=== PATIENT | female | born 1960 | race Caucasian/White ===

== ENCOUNTER → 2018-07-12 | Day surgery (SDC) | payer OTHER ==
[~2018-07-12] MED LIST: BIOTIN1 MG; D3; FENOFIBRATE145 MG; FENTANYL CITRATE/PF 100MCG/2 ML INJ ONE; FIBER POWDER; GLIMEPIRIDE2 MG; GLYBURIDE5 MG PO; ISONIAZID300 MG; KETAMINE HCL INJ 50 MG/ML 10 ML VIAL ONE; LIDOCAINE HCL 2% LOCAL INJ 5 ML SDV VIAL INJ ONE; LISINOPRIL10 MG; LISINOPRIL10 MG PO; LORCET; MAGNESIUM100 MG; METFORMIN HCL500 MG; METFORMIN HCL850 MG PO; MIDAZOLAM HCL 2 MG/2 ML VIAL ONE; ONDANSETRON HCL INJ 2 MG/ML VIAL ONE; PIOGLITAZONE; POTASSIUM; PROPOFOL IV EMULSION 10 MG/ML 50 ML VIAL ONE; [UNRECOGNIZED DRUG - OTHER]; [UNRECOGNIZED DRUG - OTHER]
[2018-07-12 17:58] LABS: BILIRUBIN,DIRECT 0.2 mg/dL (0.0-0.5)
--- NOTE | 2018-07-13 00:27 | Operative Report ---
DATE OF PROCEDURE: July 12, 2018 REFERRING PHYSICIAN: Dr. Rom Guevara. PROCEDURE PERFORMED: Esophagogastroduodenoscopy with biopsies. INDICATIONS FOR ESOPHAGOGASTRODUODENOSCOPY: Dysphagia. MEDICATIONS: Patient was done under MAC. Please see anesthesiologist's note. PROCEDURE: With the patient in left lateral decubitus position, a flexible fiberoptic Olympus gastroscope was introduced into the esophagus under direct visualization without any difficulty. There was some patchy erythema noted in distal esophagus. There was a single varix versus a prominent esophageal vein noted without active bleeding. There was some mild stricture noted at the GE junction, which was nodular and that was biopsied and dilated to size 52-[place] Baez. The scope was then advanced with ease into the stomach. Mucosa overlying the antrum and the body revealed some patchy erythema and low-grade edema, and biopsies were obtained and sent to stain for H. pylori. Pylorus appeared to be of normal contour and shape and was intubated with ease and the scope was advanced all the way to the 2nd portion of the duodenum. The scope was then withdrawn slowly. Mucosa overlying the proximal 2nd portion and the duodenal bulb appeared to be within normal limits. The scope was then withdrawn back into the stomach and retroflexed and mucosa overlying the fundus and the cardia appeared to be within normal limits. The scope was then straightened out and was subsequently withdrawn. Patient tolerated the procedure well. IMPRESSION 1. Distal esophagitis. 2. A single varix versus prominent esophageal vein without active bleeding. 3. Esophageal stricture at gastroesophageal junction, somewhat nodular, biopsied and dilated to size 52-[place] Baez. 4. Gastritis, biopsied. Biopsies sent to stain for Helicobacter pylori. PLAN: Follow up histology. Initiate Protonix 40 mg 1 p.o. q.a.m. a.c. Job#: [id number] RTY cc:Rom Guevara MD
== END | disposition home or self-care (01) ==
LOC: OR 13:03
PROVIDERS: ATTEND Internal Medicine Gastroenterology
DX: K22.2 Esophageal obstruction (principal); K29.70 Gastritis, unspecified, without bleeding; I85.00 Esophageal varices without bleeding; K21.0 Gastro-esophageal reflux disease with esophagitis; K22.70 Barrett's esophagus without dysplasia; Z01.810 Encounter for preprocedural cardiovascular examination; Z01.812 Encounter for preprocedural laboratory examination; Z88.8 Allergy status to other drugs, medicaments and biological substances; Z79.84 Long term (current) use of oral hypoglycemic drugs; E11.9 Type 2 diabetes mellitus without complications; I10 Essential (primary) hypertension
CPT/HCPCS: 36415; 43239; 43249; 80076; 82948; 93005; J2001; J2250; J2405; 43450